=== PATIENT | female | born 1960 | race Caucasian/White ===

== ENCOUNTER → 2022-07-07 12:37 | Outpatient (CLI) | payer BC, SELFPAY ==
--- NOTE | ~2022-07-07 | CT_ITS ---
EXAMINATION: CT lung screening DATE: 07/07/2022 12:57 INDICATION: Nicotine Dependence w/ current use, Screening TECHNIQUE: Computed tomography (CT) of the chest was performed without intravenous contrast. Addition al 3D reconstructions utilizing coronal maximum intensity projection (MIP) were performed. Automated exposure control and iterative reconstruction technique were employed. The dose-length product was 96 .53 mGy-cm. COMPARISON: None FINDINGS: Mild emphysema. Several somewhat ill-defined 6 mm or smaller groundglass pleural/subpleural nodules a long the bilateral lung bases. No other suspicious pulmonary nodules, pneumonia, pulmonary edema or p leural effusion. Arch size is normal. Atherosclerotic coronary artery calcification. No pericardial e ffusion. Thoracic aorta is normal in caliber. No pathologically enlarged thoracic lymphadenopathy. Mo derate thoracic spondylosis. IMPRESSION: 1. Lung-RADS category 2: Benign appearance or behavior. Continue annual screening with noncontrast lo w-dose chest CT in 12 months. Reviewed, dictated and finalized at location B. IMPRESSION: 1. Lung-RADS category 2: Benign appearance or behavior. Continue annual screeni ng with noncontrast low-dose chest CT in 12 months.
== END ==
PROVIDERS: PCP Nurse Practitioner Family; Visit Provider Nurse Practitioner Family
DX: Z12.2 Encounter for screening for malignant neoplasm of respiratory organs (principal); Z87.891 Personal history of nicotine dependence
CPT/HCPCS: 71271

== ENCOUNTER → 2022-07-07 13:08 | Outpatient (CLI) | payer BC, SELFPAY ==
--- NOTE | ~2022-07-07 | MM_ITS ---
EXAMINATION: MM screening leatha BI w maddy HISTORY: Screening TECHNIQUE: Craniocaudal and mediolateral oblique 3-D tomosynthesis images were obtained and synthetic 2-D images were generated. CAD analysis was submitted and interpreted. COMPARISON: No prior mammogram is available for comparison at this institution. BREAST PARENCHYMAL COMPOSITION: There are scattered areas of fibroglandular density. FINDINGS: There is no evidence of suspicious mass, calcification, or architectural distortion to sugg est malignancy in either breast. There has been no suspicious interval change. IMPRESSION: 1. No mammographic evidence of malignancy. 2. Recommend routine screening mammography in one year. BI-RADS Category 1: Negative Reviewed, dictated and finalized at location A.
== END ==
PROVIDERS: PCP Obstetrics & Gynecology Gynecology; Visit Provider Obstetrics & Gynecology Gynecology
DX: Z12.31 Encounter for screening mammogram for malignant neoplasm of breast (principal)
CPT/HCPCS: 77063; 77067

== ENCOUNTER → 2023-08-24 07:43 | Outpatient (CLI) | payer BC, SELFPAY ==
--- NOTE | ~2023-08-24 | MMUS_ITS ---
EXAMINATION: MM diagnostic leatha BI w maddy, US breast BI limited HISTORY: Reported abnormal outside mammogram TECHNIQUE: Additional 3-D tomosynthesis images of both breasts were performed and synthetic 2-D image s were generated. CAD analysis was submitted and interpreted. High resolution bilateral subareolar br east ultrasound examination was performed. COMPARISON: 07/11/2023 and 07/07/2022 bilateral screening mammogram examinations BREAST PARENCHYMAL COMPOSITION: There are scattered areas of fibroglandular density. FINDINGS: MAMMOGRAPHIC FINDINGS: No suspicious mass or architectural distortion, malignant calcification, skin thickening or retractio n or significant new or developing density is detected. ULTRASOUND: Real-time imaging of both subareolar areas reveals a 2 mm cyst in the subareolar area of the right br east but no other significant abnormality. No suspicious mass or shadowing in either subareolar area is detected. IMPRESSION: 1. Benign finding 2. Routine annual mammographic screening is recommended BI-RADS Category 2: Benign finding(s). Reviewed, dictated and finalized at location A. [facility] IMPRESSION: 1. Benign finding 2. Routine annual mammographic screening is recommended BI-RADS Category 2: Benign finding(s).
== END ==
PROVIDERS: PCP Nurse Practitioner Family; Visit Provider Obstetrics & Gynecology Gynecology
DX: R92.8 Other abnormal and inconclusive findings on diagnostic imaging of breast (principal)
CPT/HCPCS: 76642; 77062; 77066; G0279

== ENCOUNTER 2024-01-18 10:14 | Outpatient (CLI) | payer BC, SELFPAY ==
--- NOTE | ~2024-01-18 | CT_ITS ---
CT Scan of the Chest without Contrast: Clinical Indication: Lung cancer screening, nicotine dependence Technique: Contiguous sections were acquired throughout the chest without intravenous contrast. Dose reduction technique was used on this scan by utilizing automated exposure control and iterative recon struction technique. The dose-length product (DLP) was 66.03 mGy-cm. COMPARISON: 07/07/2022 Findings: There is no evidence of any significant mediastinal, hilar or axillary lymphadenopathy. Coronary migdalia ry calcifications are present. There is no evidence of pleural or pericardial effusion. The lungs are clear. No pulmonary nodules or infiltrates are noted. Images through the upper abdomen reveal no abnormalities. Impression: Lung RADS 1: Negative. 12 month follow-up screening CT advised. Reviewed, dictated and finalized at location . Impression: Lung RADS 1: Negative. 12 month follow-up screening CT advised.
== END 2024-01-18 10:15 ==
LOC: MICIMG 10:15
PROVIDERS: PCP Nurse Practitioner Family; Visit Provider Nurse Practitioner Family
DX: Z12.2 Encounter for screening for malignant neoplasm of respiratory organs (principal); Z87.891 Personal history of nicotine dependence
CPT/HCPCS: 71271